=== PATIENT | male | born 1980 | race Two or more races ===

== ENCOUNTER 2023-08-21 12:39 | Inpatient (IN) | payer OTHER ==
[~2023-08-21] VITALS: Ht 167.6 cm; Wt 82.3 kg
[2023-08-21] MEDS ORDERED: ACETAMINOPHEN 325 MG TABLET PO PRN (15:30)
[2023-08-21] MEDS ORDERED: ZOLPIDEM TARTRATE 5 MG TABLET PO PRN (15:30)
[2023-08-21] MEDS ORDERED: MAGNESIUM HYDROXIDE SUSPENSION 30 ML UDCUP PO PRN (15:30)
[2023-08-21 16:08] LABS: BASOPHILS % (AUTO) 0.6 % (0.0-2.0); EOSINOPHILS % (AUTO) 3.7 % (1.0-6.0); HEMATOCRIT 44.8 % (41-53); HEMOGLOBIN 15.2 g/dL (13.5-17.5); LYMPHOCYTES # (AUTO) 1.9 K/uL (1.0-4.8); LYMPHOCYTES % (AUTO) 25.9 % (22.0-44.0); MEAN CORPUSCULAR HEMOGLOBIN 30.2 pg (26.0-34.0); MEAN CORPUSCULAR VOLUME 89 fL (80-100); MONOCYTES # (AUTO) 0.7 K/uL (0.1-1.0); MONOCYTES % (AUTO) 8.9 % (2.0-9.0); NEUTROPHILS # (AUTO) 4.6 K/uL (1.8-7.7); NEUTROPHILS % (AUTO) 60.9 % (40.0-70.0); PLATELET COUNT (AUTO) 251 K/uL (150-450); RED BLOOD CELL COUNT(AUTO) 5.03 MIL/uL (4.50-5.90); RED CELL DISTRIBUTION WIDTH 13.6 % (11.5-14.5); WHITE BLOOD COUNT (AUTO) 7.5 K/uL (4.5-11.0)
[2023-08-21 16:33] LABS: ANION GAP 8 mmol/L (8-16); CARBON DIOXIDE 29 mmol/L (22-29); CHLORIDE 100 mmol/L (98-107); CREATININE 0.85 mg/dL (0.60-1.30); GLOMERULAR FILTR. RATE CALC > 60 mL/min (>60); GLUCOSE,RANDOM 101 mg/dL (70-110); POTASSIUM 3.9 mmol/L (3.5-5.1); SODIUM SERUM 137 mmol/L (136-145); UREA NITROGEN, BLOOD 12 mg/dL (7-18)
[2023-08-21 16:37] LABS: ALANINE AMINOTRANSFERASE 35 U/L (12-78); ALBUMIN 3.8 g/dL (3.4-5.0); ALKALINE PHOSPHATASE 151 U/L (46-116); ASPARTATE AMINOTRANSFERASE 18 U/L (15-37); BILIRUBIN,TOTAL 0.7 mg/dL (0.1-1.0)
[2023-08-21 17:44] LABS: INFLUENZA A-RTPCR,COMBO NEGATIVE (NEGATIVE); INFLUENZA B-RTPCR,COMBO NEGATIVE (NEGATIVE); RESPIRATORY SYNCYTIAL VRS-PCR NEGATIVE (NEGATIVE); SARS COVID19 RTPCR, COMBO NEGATIVE (NEGATIVE)
[2023-08-21 20:35] VITALS: BP 101/72; PULSE 65; RESP 18; TEMP 98.4
[2023-08-21 23:29] VITALS: BP 110/77; PULSE 68; RESP 19; TEMP 97.5
[2023-08-22 03:49] VITALS: BP 97/61; PULSE 67; RESP 19; TEMP 97.7
[2023-08-22] MEDS ORDERED: SODIUM CHLORIDE 3% 15 ML NEB SOLUTION NEB ONE (07:07)
[2023-08-22 08:06] LABS: HIV 1-2 SCREEN 4TH GEN W/RFLX Non Reactive (Non Reactive)
[2023-08-22 08:27] VITALS: PULSE 66; RESP 18; TEMP 98
[2023-08-22] MEDS: FAMOTIDINE 20 MG TABLET PO SCH (09:07)
[2023-08-22 12:09] VITALS: PULSE 70; RESP 19; TEMP 97.8
[2023-08-22 20:55] VITALS: BP 115/69; PULSE 65; RESP 19; TEMP 98
[2023-08-23] MEDS ORDERED: SODIUM CHLORIDE 3% 15 ML NEB SOLUTION NEB ONE ×2 (00:05→08:38)
[2023-08-23 00:37] VITALS: BP 107/74; PULSE 85; RESP 19; TEMP 98
[2023-08-23 05:24] VITALS: BP 117/73; PULSE 74; RESP 16; TEMP 97.6
[2023-08-23 07:40] VITALS: BP 112/69; PULSE 83; RESP 18; TEMP 98
[2023-08-23 11:32] VITALS: BP 105/64; PULSE 93; RESP 18; TEMP 98
[2023-08-23 12:07] LABS: MTB PCR w/Rif. Resistance-SPUT NOT DETECTED (Not Detectd)
[2023-08-23 14:06] LABS: QUANTIFERON+, Nil Value 0.23 IU/mL; QUANTIFERON+,Mitogen Value >10.00 IU/mL; QUANTIFERON+,TB1 Antigen Value >10.00 IU/mL; QUANTIFERON+,TB2 Antigen Value >10.00 IU/mL; QUANTIFERON, TB GOLD PLUS Positive (Negative)
[2023-08-23 14:21] LABS: MTB PCR w/Rif. Resistance-SPUT NOT DETECTED (Not Detectd)
[2023-08-23 15:41] VITALS: BP 97/66; PULSE 89; RESP 18; TEMP 98
[2023-08-23 21:24] VITALS: BP 102/64; PULSE 90; RESP 18; TEMP 98.7
[2023-08-24 06:04] VITALS: BP 121/72; PULSE 77; RESP 18; TEMP 98.5
[2023-08-24 09:27] VITALS: BP 113/70; PULSE 76; RESP 19; TEMP 98.3
[2023-08-24 10:47] VITALS: BP 164/90; PULSE 67; RESP 18; TEMP 98.2
[2023-08-24 17:16] VITALS: BP 112/68; PULSE 76; RESP 20; TEMP 98.1
[2023-08-24 20:50] VITALS: BP 107/64; PULSE 82; RESP 19; TEMP 97.8
[2023-08-25 00:05] VITALS: BP 101/61; PULSE 81; RESP 18; TEMP 98.3
[2023-08-25 04:03] VITALS: BP 111/69; PULSE 90; RESP 19; TEMP 97.9
[2023-08-25 07:43] VITALS: BP 118/72; PULSE 92; RESP 18; TEMP 98.1
[2023-08-25 11:26] VITALS: BP 115/67; PULSE 85; RESP 18; TEMP 98.3
[2023-08-25 15:53] VITALS: BP 96/58; PULSE 79; RESP 18; TEMP 97.8
[2023-08-25 20:42] VITALS: BP 105/67; PULSE 86; RESP 16; TEMP 97.9
[2023-08-25 23:36] LABS: BASOPHILS % (AUTO) 0.3 % (0.0-2.0); HEMATOCRIT 44.4 % (41-53); LYMPHOCYTES % (AUTO) 31.5 % (22.0-44.0); MEAN CORPUSCULAR HEMOGLOBIN 29.8 pg (26.0-34.0); MEAN CORPUSCULAR HGB CONC 33.7 G/dL (31.0-37.0); MEAN CORPUSCULAR VOLUME 88 fL (80-100); MONOCYTES # (AUTO) 0.7 K/uL (0.1-1.0); MONOCYTES % (AUTO) 7.5 % (2.0-9.0); NEUTROPHILS # (AUTO) 5.3 K/uL (1.8-7.7); NEUTROPHILS % (AUTO) 54.7 % (40.0-70.0); PLATELET COUNT (AUTO) 256 K/uL (150-450); RED BLOOD CELL COUNT(AUTO) 5.02 MIL/uL (4.50-5.90); RED CELL DISTRIBUTION WIDTH 13.5 % (11.5-14.5); WHITE BLOOD COUNT (AUTO) 9.7 K/uL (4.5-11.0)
[2023-08-25 23:47] LABS: ANION GAP 7 mmol/L (8-16); CALCIUM, TOTAL 9.4 mg/dL (8.8-10.5); CARBON DIOXIDE 28 mmol/L (22-29); CHLORIDE 102 mmol/L (98-107); CREATININE 0.88 mg/dL (0.60-1.30); GLOMERULAR FILTR. RATE CALC > 60 mL/min (>60); GLUCOSE,RANDOM 126 mg/dL (70-110); POTASSIUM 3.8 mmol/L (3.5-5.1); SODIUM SERUM 137 mmol/L (136-145); UREA NITROGEN, BLOOD 17 mg/dL (7-18)
[2023-08-25 23:53] LABS: ALANINE AMINOTRANSFERASE 29 U/L (12-78); ALBUMIN 3.7 g/dL (3.4-5.0); ALKALINE PHOSPHATASE 170 U/L (46-116); ASPARTATE AMINOTRANSFERASE 16 U/L (15-37); BILIRUBIN,TOTAL 0.4 mg/dL (0.1-1.0); TOTAL PROTEIN, SERUM 7.7 g/dL (6.4-8.2)
[2023-08-26 00:44] VITALS: BP 94/57; PULSE 73; RESP 16; TEMP 97.9
[2023-08-26 05:48] VITALS: BP 108/72; PULSE 77; RESP 16; TEMP 97.5
[2023-08-26 09:34] VITALS: BP 108/73; PULSE 74; RESP 18; TEMP 98
[2023-08-26] MEDS: PYRIDOXINE HCL 50 MG TABLET PO SCH (09:59)
[2023-08-26] MEDS: PYRAZINAMIDE 500 MG TABLET PO SCH (09:59)
[2023-08-26] MEDS: RIFAMPIN 300 MG CAPSULE PO SCH (09:59)
[2023-08-26] MEDS: ETHAMBUTOL HCL 400 MG TABLET PO SCH (10:00)
[2023-08-26] MEDS: ISONIAZID 300 MG TABLET PO SCH (10:00)
[2023-08-26] MEDS ORDERED: IOHEXOL 350 MG/ML 100 ML VIAL ONE (10:29)
[2023-08-26] MEDS ORDERED: SODIUM CHLORIDE 0.9% 100 ML ONE (10:30)
[2023-08-26 11:44] VITALS: BP 105/66; PULSE 77; RESP 19; TEMP 97.8
[2023-08-26 15:45] VITALS: BP 113/73; PULSE 61; RESP 20; TEMP 98
[2023-08-26 20:30] VITALS: BP 96/64; PULSE 80; RESP 18; TEMP 98.3
[2023-08-27 01:48] VITALS: BP 90/58; PULSE 73; RESP 18; TEMP 97.8
[2023-08-27 03:55] VITALS: BP 111/61; PULSE 75; RESP 18; TEMP 97.8
[2023-08-27 08:50] VITALS: BP 112/75; PULSE 76; RESP 19; TEMP 98
[2023-08-27 11:35] VITALS: BP 108/64; PULSE 83; RESP 20; TEMP 98.2
[2023-08-27 15:45] VITALS: BP 102/59; PULSE 83; RESP 19; TEMP 98
[2023-08-27] MEDS ORDERED: ISON300 PO (18:13)
[2023-08-27] MEDS ORDERED: FAMO20 PO (18:13)
[2023-08-27] MEDS ORDERED: PYRI-9 PO (18:17)
[2023-08-27] MEDS ORDERED: PYRA500T33 PO (18:17)
[2023-08-27] MEDS ORDERED: RIFA300C63 PO (18:19)
[2023-08-27] MEDS ORDERED: ETHA400T33 PO (18:21)
[2023-08-28] MEDS ORDERED: PYRAZINAMIDE 500 MG TABLET PO SCH (09:00)
[2023-08-28] MEDS ORDERED: ETHAMBUTOL HCL 400 MG TABLET PO SCH (09:00)
== END 2023-08-27 20:50 | DRG 179 ==
LOC: EMS 12:40 → AHU 15:24 → 5N 18:06
PROVIDERS: ADMIT Internal Medicine; ATTEND Internal Medicine
DX: A15.9 Respiratory tuberculosis unspecified (principal); Z11.1 Encounter for screening for respiratory tuberculosis; Z20.822 Contact with and (suspected) exposure to COVID-19
CPT/HCPCS: 0241U; 71045; 71250; 71260; 80053; 85025; 86480; 87015; 87206; 87389; 87556; 94640; 99285; J7050; Q9967; 36415-L1; 36415-TC